=== PATIENT | male | born 1975 | race Caucasian/White ===

== ENCOUNTER → 2019-08-17 17:51 | Outpatient (CLI) | payer BC, SELFPAY ==
--- NOTE | ~2019-08-17 | MR_ITS ---
EXAMINATION: MR knee RT wo con DATE: 08/17/2019 18:56 INDICATION: Chronic right knee pain. TECHNIQUE: Magnetic resonance imaging (MRI) of the right knee was performed without intravenous contr ast. Sequences included coronal and sagittal PD-weighted FSE and axial, coronal, and sagittal STIR FS E. COMPARISON: None. FINDINGS: Medial compartment: Medial meniscus is intact. There is deep partial thickness cartilage loss of femoral condyle involvin g the central, lateral, and posterior articular surface with mild subchondral edema-like marrow signa l intensity. There is cartilage surface irregularity of tibial condyle. Marginal osteophytes are note d. Lateral compartment: There is maceration of the body of lateral meniscus. There is full-thickness cartilage loss of femora l condyle involving the central, lateral, and posterior articular surface with moderate subchondral e mary-like marrow signal intensity. There is extensive partial thickness cartilage loss of femoral con dyle. There is extensive partial thickness cartilage loss of tibial condyle. There is full-thickness cartilage loss of tibial condyle involving the posterior and lateral articular surface with mild subc hondral edema-like marrow signal intensity. Osteophytes are noted. Patellofemoral compartment: There is shallow partial-thickness cartilage loss of patellar medial and lateral facets. There is carlos a p partial thickness cartilage loss of medial, central, and lateral trochlea. Marginal osteophytes are noted. Ligaments and tendons: The anterior and posterior cruciate ligaments are intact. Medial collateral ligament and lateral yamileth ateral ligament complex are normal. There is metal artifact in the area of patellar tendon. Fluid: There is a small knee joint effusion. There is edema of the gastrocnemius muscles. 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 IMPRESSION: 1. 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 2. Tear of lateral meniscus. 3. Small knee joint effusion. 4. Metal artifact in the area of patellar tendon. Correlate with surgical history or consider radiogr aphs to exclude foreign body. 5. Edema of the gastrocnemius muscles, which may be mild strain. Reviewed, dictated and finalized at location A. IMPRESSION: 1. Severe chondrosis of lateral compartment and moderate chondrosis of medial a nd patellofemoral compartments. 2. Tear of lateral meniscus. 3. Small knee joint effusion. 4. Metal artifact in the area of patellar tendon. Correlate with surgical histo ry or consider radiographs to exclude foreign body. 5. Edema of the gastrocnemius muscles, which may be mild strain.
== END ==
PROVIDERS: Visit Provider Orthopaedic Surgery
DX: M25.461 Effusion, right knee (principal); S83.281A Other tear of lateral meniscus, current injury, right knee, initial encounter; X58.XXXA Exposure to other specified factors, initial encounter
CPT/HCPCS: 73721